=== PATIENT | male | born 1990 | race Caucasian/White ===

== ENCOUNTER 2016-07-31 16:13 | Inpatient (IN) | payer OTHER, BC ==
[~2016-07-31] VITALS: Ht 190.5 cm; Wt 67.2 kg
[~2016-07-31 16:13] MED LIST: KEFLEX500 MG PO
[2016-07-31 18:07] LABS: ADD MEDTOX COMMENT Y; AMPHETAMINE NEGATIVE (500 ng/mL); BARBITURATES NEGATIVE (200 ng/mL); BENZODIAZEPINES NEGATIVE (150 ng/mL); COCAINE NEGATIVE (150 ng/mL); INTERNAL CONTROLS VALID? YES; METHADONE NEGATIVE (200 ng/mL); METHAMPHETAMINE NEGATIVE (500 ng/mL); OPIATES (MORPHINE) NEGATIVE (100 ng/mL); OXYCODONE NEGATIVE (100 ng/mL); PHENCYCLIDINE NEGATIVE (25 ng/mL); PROPOXYPHENE NEGATIVE (300 ng/mL); THC CANNABINOIDS PRESUMPTIVE POSITIVE (50 ng/mL); TRICYCLIC ANTIDEPRESSANTS NEGATIVE (300 ng/mL)
[2016-07-31 19:02] LABS: HEMATOCRIT 45.7 % (38.0-50.0); MCH 28.8 PG (29.0-34.0); MCHC 33.9 G/DL (30.0-36.0); MCV 84.9 FL (86-99); MEAN PLAT.VOLUME 9.6 uM^3 (9.0-12.4); PLATELET COUNT 241 K/uL (156-360); RBC DIS.WIDTH-CV 12.3 % (11.8-14.6); RBC DIS.WIDTH-SD 38.1 % (39-53); RED BLOOD COUNT 5.38 M/uL (4.00-5.50); WHITE BLOOD COUNT 6.8 K/uL (4.1-10.2)
[2016-07-31 19:10] LABS: CHLORIDE 106 mEq/L (99-109); POTASSIUM 3.8 mEq/L (3.7-5.4); SODIUM 141 mEq/L (136-147)
[2016-07-31 19:12] LABS: GLUCOSE 85 mg/dL (70-99)
[2016-07-31 19:13] LABS: ANION GAP 11 MEQ/L (2-14)
[2016-07-31 19:14] LABS: TOTAL BILIRUBIN 0.8 mg/dL (0.0-1.0)
[2016-07-31 19:15] LABS: SERUM ETHYL ALCOHOL < 10 mg/dL
[2016-07-31 19:16] LABS: ALKALINE PHOSPHATASE 52 IU/L (3-129); GFR ESTIMATE (CALCULATED) > 59 mL/min/
[2016-07-31 19:17] LABS: UREA NITROGEN (BUN) 7 mg/dL (9-23)
[2016-07-31 21:43] VITALS: BP 142/93
[2016-07-31 22:29] LABS: ADD MIUA? YES; BILIRUBIN NEGATIVE; BLOOD NEGATIVE; COLOR STRAW ((YELLOW)); GLUCOSE (STRIP) NEGATIVE; KETONES NEGATIVE; LEUKOCYTES NEGATIVE; NITRITE NEGATIVE; PROTEIN (STRIP) NEGATIVE; SPECIFIC GRAVITY 1.009 (1.000-1.030); UROBILINOGEN 0.2 MG/DL (0.2-1.0)
[2016-07-31 22:46] LABS: BACTERIA NONE SEEN /HPF; EPITHELIAL CELLS NONE SEEN /HPF; MUCUS TRACE /LPF; RED BLOOD CELLS NONE SEEN /HPF (0-5); UCUL ADDED? NO; WHITE BLOOD CELLS NONE SEEN /HPF (0-5)
[2016-08-01 07:46] VITALS: BP 130/73
[2016-08-01 15:52] VITALS: BP 158/79
[2016-08-02 07:53] VITALS: BP 140/83
[2016-08-02 15:32] VITALS: BP 165/97
[2016-08-02 17:36] VITALS: BP 136/80
[2016-08-03 07:51] VITALS: BP 150/95
[2016-08-03 11:39] VITALS: BP 158/89
[2016-08-03 16:09] VITALS: BP 128/69
[2016-08-04 07:55] VITALS: BP 197/88
[2016-08-04 15:22] VITALS: BP 142/90
[2016-08-05 08:00] VITALS: BP 125/89
[2016-08-05 08:09] VITALS: BP 125/89
[2016-08-05 11:15] LABS: EOSINOPHIL (%) 0.4 % (0-5); HEMATOCRIT 52.7 % (38.0-50.0); IMMATURE GRANULOCYTE (%) 0.2 % (0.0-0.7); INSTRUMENT ABS NEUTROPHIL CT 2.8 K/uL; LYMPHOCYTE COUNT 2.1 K/uL (1.0-2.8); MCH 28.9 PG (29.0-34.0); MCHC 33.4 G/DL (30.0-36.0); MCV 86.4 FL (86-99); MEAN PLAT.VOLUME 10.2 uM^3 (9.0-12.4); MONOCYTE (%) 6.8 % (3-12); MONOCYTE COUNT 0.4 K/uL (0-0.8); NEUTROPHIL (%) 53.1 % (45-76); NEUTROPHIL COUNT 2.8 K/uL (1.8-6.4); PLATELET COUNT 295 K/uL (156-360); RBC DIS.WIDTH-CV 12.3 % (11.8-14.6); RBC DIS.WIDTH-SD 38.8 % (39-53); WHITE BLOOD COUNT 5.3 K/uL (4.1-10.2)
[2016-08-05 11:25] LABS: ALKALINE PHOSPHATASE 59 IU/L (3-129); DIRECT BILIRUBIN 0.1 mg/dL (0.0-0.3); TOTAL BILIRUBIN 0.9 MG/DL (0.0-1.0)
[2016-08-05 15:15] VITALS: BP 133/73
[2016-08-06 09:26] VITALS: BP 154/93
[2016-08-06 15:51] VITALS: BP 115/69
[2016-08-07 07:56] VITALS: BP 133/61
[2016-08-07] MEDS ORDERED: DIVALPROEX SOD500 MG PO (09:16)
== END 2016-08-07 12:20 | disposition home or self-care (01) | DRG 885 ==
LOC: EME 16:13 → 1WEST 20:01 → EDOF 20:01 → 1WEST 20:01 → EDOF 20:01 → 1WEST 21:36
PROVIDERS: Emergency Medicine; Nurse Practitioner Family
DX: F31.12 Bipolar disorder, current episode manic without psychotic features, moderate (principal); R44.0 Auditory hallucinations; F41.9 Anxiety disorder, unspecified; G47.00 Insomnia, unspecified; F12.20 Cannabis dependence, uncomplicated; F17.210 Nicotine dependence, cigarettes, uncomplicated; Z81.8 Family history of other mental and behavioral disorders
CPT/HCPCS: 80053; 80076; 80164; 81003; 84999; 85025; 85027; 90839; 97150 GO; 97165 GO; 99281; 99285; G0480

== ENCOUNTER 2017-06-28 21:07 | Emergency (ER) | payer OTHER ==
[~2017-06-28] VITALS: Ht 190.5 cm; Wt 68.7 kg
[~2017-06-28 21:07] MED LIST changes: +DIVALPROEX SOD500 MG PO
[2017-06-28 21:59] LABS: HEMATOCRIT 40.9 % (38.0-50.0); HEMOGLOBIN 14.7 G/DL (12.5-16.6); MCH 29.6 PG (29.0-34.0); MCHC 35.9 G/DL (30.0-36.0); MCV 82.3 FL (86-99); PLATELET COUNT 181 K/uL (156-360); RBC DIS.WIDTH-CV 11.9 % (11.8-14.6); RBC DIS.WIDTH-SD 35.7 % (39-53); RED BLOOD COUNT 4.97 M/uL (4.00-5.50); WHITE BLOOD COUNT 7.8 K/uL (4.1-10.2)
[2017-06-28 22:09] LABS: ALBUMIN 4.8 g/dL (3.2-4.8); CHLORIDE 103 mEq/L (99-109); POTASSIUM 3.2 mEq/L (3.7-5.4); SODIUM 140 mEq/L (136-147)
[2017-06-28 22:12] LABS: GLUCOSE 101 mg/dL (70-99); TOTAL PROTEIN 6.8 g/dL (6.4-8.3)
[2017-06-28 22:13] LABS: TOTAL BILIRUBIN 1.1 mg/dL (0.0-1.0)
[2017-06-28 22:15] LABS: ALKALINE PHOSPHATASE 51 IU/L (3-129); CREATININE 0.9 mg/dL (0.6-1.3); GFR ESTIMATE (CALCULATED) > 59 mL/min/ (58.99-99999); SERUM ETHYL ALCOHOL < 10 mg/dL
[2017-06-28 22:16] LABS: UREA NITROGEN (BUN) 10 mg/dL (9-23)
[2017-06-28 22:17] LABS: AST (GOT) 17 IU/L (2-34)
[2017-06-28 22:18] LABS: ALT (GPT) 14 IU/L (3-49)
[2017-06-28 22:41] VITALS: BP 136/84
== END 2017-06-28 22:45 | disposition home or self-care (01) ==
LOC: EME 21:07
PROVIDERS: Emergency Medicine
DX: F31.12 Bipolar disorder, current episode manic without psychotic features, moderate (principal); F12.20 Cannabis dependence, uncomplicated; F41.9 Anxiety disorder, unspecified; F17.200 Nicotine dependence, unspecified, uncomplicated
CPT/HCPCS: 80053; 81003; 85027; 90839; 99281; 99285; G0480